=== PATIENT | female | born 1965 | race African-American/Black ===

== ENCOUNTER 2016-04-09 23:01 | Emergency (ER) ==
[2016-04-10] MEDS ORDERED: PHENERGAN WITH CODEINE LIQUID PO ONE (00:09)
[2016-04-10] MEDS ORDERED: MOTRIN PO ONE (00:09)
--- NOTE | 2016-04-10 00:13 | PROVIDER DOCUMENTATION ---
HPI-Respiratory General - General Source: patient - History of Present Illness-Resp Severity in ED: reports: mild Onset/Duration: reports: this morning Timing: reports: still present Cough Quality/Degree: reports: mild Associated Symptoms: reports: cough, fever/chills, flu-like symptoms, headache, muscle/bodyaches, nasal congestion, sore throat Similar Symptoms Previously?: No Recently seen or treated by another doctor?: No <Magali Byrd - Last Filed: 04/10/16 00:09> <Brodie Garcia - Last Filed: 04/10/16 00:38> - General Chief Complaint: Cold Symptoms Stated Complaint: COUGH, FEVER, MARX, NAUSEA Time Seen by Provider: 04/09/16 23:41 Allergies/Adverse Reactions: Patient Allergies Allergy/AdvReac Type Severity Reaction Status Date / Time No Known Allergies Allergy Verified 04/09/16 23:12 Home Medications: Home Medication List Medication Instructions Recorded Confirmed Last Taken Type Estrogens, Conjugated [Premarin] 0.45 mg PO DIRECTED 09/14/14 04/09/16 05:30 History Propranolol L.a. [Inderal LA] 60 mg PO QAM 09/14/14 04/09/16 04/09/16 05:30 History Zolpidem [Ambien] 10 mg PO QHS 09/14/14 04/09/16 04/09/16 19:00 History Codeine/Promethazine [Phenergan 10 ml PO TID PRN PRN #120 ml 04/10/16 Unknown Rx with Codeine] Ibuprofen [Motrin] 800 mg PO Q8H PRN PRN #30 tablet 04/10/16 Unknown Rx Oseltamivir [Tamiflu] 75 mg PO BID #10 capsule 04/10/16 Unknown Rx - History of Present Illness-Resp Nature of Presenting Problem: 50 year old F presents to the ED with a cc of body aches, headache, cough, congestion, nausea, sore throat, and fever with an onset of this morning. PT states that she has been expose to similar symptoms while at work. (Magali Byrd ) Review of Systems - Adult - REVIEW OF SYSTEMS - ADULT Constitutional: reports: fever. denies: chills Eyes: reports: no symptoms reported Ears, Nose, Mouth & Throat: reports: sinus problem, throat pain. denies: ear pain Cardiovascular: reports: no symptoms reported Respiratory: reports: cough. denies: shortness of breath Gastrointestinal: reports: nausea. denies: diarrhea, vomiting Genitourinary: denies: dysuria, hematuria Musculoskeletal: reports: muscle aches. denies: muscle weakness Integumentary: denies: skin sores/ulcer, skin thickening Neurological: reports: headache/migraines. denies: dizziness/vertigo Psychiatric: reports: no symptoms reported Endocrine: reports: no symptoms reported Hematologic/Lymphatic: reports: no symptoms reported Allergic/Immunologic: reports: no symptoms reported All Other Systems: Reviewed and Negative <Magali Byrd - Last Filed: 04/10/16 00:09> Past History - Adult - PAST MEDICAL HISTORY-ADULT Review of Records: reports: Nursing Assessment Review, Medications Reviewed Major Childhood Illnesses: reports: denies history Cardiovascular: reports: denies history Respiratory: reports: denies history Gastrointestinal: reports: denies history Obstetrical/Gynecological: reports: denies history Genitourinary: reports: denies history Musculoskeletal: reports: denies history Neurological: reports: headaches/migraines Psychiatric: reports: anxiety Endocrine/Immune: reports: denies history Other Conditions: reports: denies history - PRIOR SURGERIES/PROCEDURES Surgical/Procedure History: reports: colonoscopy, hysterectomy, BTL - IMMUNIZATION STATUS Childhood Immunizations: See Nurse Assessment Flu Vaccine: See Nurse Assessment - FAMILY HISTORY Family History: reviewed, not pertinent - SOCIAL HISTORY Smoking: non-smoker Substance Use: none/never Alcohol Use Frequency: never <Magali Byrd - Last Filed: 04/10/16 00:09> Physical Exam-General - PHYSICAL EXAM-ADULT Initial Vital Signs Reviewed: Yes - CONSTITUTIONAL General Appearance: appears well, alert, no apparent distress - HEAD, EARS, NOSE, MOUTH & THROAT HENMT: normocephalic/atraumatic, moist mucous membranes, normal ENT inspection, TMs normal, pharynx normal - RESPIRATORY Respiratory: chest non-tender, lungs clear, normal breath sounds - CARDIOVASCULAR Cardiovascular: normal peripheral pulses, regular rate, rhythm, no edema - GASTROINTESTINAL (ABDOMEN) Abdominal Exam: non tender, soft - MUSCULOSKELETAL Extremity: normal inspection - SKIN Integumentary: normal color, normal turgor, warm/dry - PSYCHIATRIC Psych/Mental Status: normal mood/affect, normal thought content, normal thought process, oriented x 3 <Magali Byrd - Last Filed: 04/10/16 00:09> Departure <Magali Byrd - Last Filed: 04/10/16 00:09> - Departure Time of Disposition Order: 00:28 Certified Medical Emergency: Emergent <Brodie Garcia - Last Filed: 04/10/16 00:38> - Departure DIAGNOSIS: Influenza-like illness Disposition: HOME 01 Condition: Fair Additional Instructions: ED Follow Up Instructions: You have been treated by a care provider in the Emergency Department. These instructions are being provided to you so you can have an understanding of how to care for yourself upon discharge. Upon discharge from the Emergency Department, you are responsible for making arrangements for follow-up care by a physician of your choice. Take all prescribed medications as directed. Return to the Emergency Department immediately for any new or worsening symptoms. You may call the Physician Referral phone number at [phone] to obtain a list of Physicians who are taking new patients. Prescriptions: Ibuprofen [Motrin] 800 mg PO Q8H PRN PRN #30 tablet PRN Reason: Pain Codeine/Promethazine [Phenergan with Codeine] 10 ml PO TID PRN PRN #120 ml PRN Reason: Cough Oseltamivir [Tamiflu] 75 mg PO BID #10 capsule Referrals: None,PCP [Primary Care Provider] - Forms: Return to School/Parent Work Instructions: Influenza, Adult, [id number] Attestation - Scribe Verification/Attestation Scribe:: Magali Byrd Acting as Scribe for:: Brodie Garcia Scribe documention review:: This chart was documented by a scribe and accurately reflects the service the provider performed and the decisions made by the provider. <Magali Byrd - Last Filed: 04/10/16 00:09> Physician Attestation - Physician Attestation I, the provider, attest to the following statement:: Brodie Garcia Physician documentation Attestation:: This documentation recorded by the scribe accurately reflects the service I personally performed and the decisions made by me. <Magali Byrd - Last Filed: 04/10/16 00:09>
[2016-04-10] MEDS ORDERED: TAMIFLU PO ONE (00:21)
[2016-04-10 00:41] VITALS: BP 116/67
--- NOTE | 2016-04-10 06:50 | Diag Imaging Result Document ---
PROCEDURE NAME: CHEST-2 VIEWS - 04/09/2016 FRONTAL AND LATERAL CHEST, TWO VIEWS: FINDINGS: The lungs are well expanded. The heart is not enlarged. The vessels are not distended. There are no infiltrates. No pleural effusions. Minimal curvature to the spine. IMPRESSION: No pneumonia.
== END 2016-04-10 00:41 | disposition home or self-care (01) ==
LOC: ED 23:01
DX: J11.1 Influenza due to unidentified influenza virus with other respiratory manifestations (principal); R05 Cough; R50.9 Fever, unspecified; R51 Headache; M79.1 Myalgia; R09.81 Nasal congestion; J02.9 Acute pharyngitis, unspecified; R11.0 Nausea; Z79.899 Other long term (current) drug therapy
CPT/HCPCS: 71020; 87804